=== PATIENT | female | born 1965 | race Caucasian/White ===

== ENCOUNTER 2018-08-15 11:52 | Day surgery (SDC) | payer BC ==
[~2018-08-15 11:52] MED LIST: Lactated Ringers 1,000 ML IV SCH
[2018-08-15] MEDS ORDERED: Acetaminophen 1,000 MG in Premix Bag 1 BAG IV ONE (13:41)
--- NOTE | 2018-08-15 13:43 | PCM.PREANE ---
Preanesthetic Assessment - Anesthesia/Transfusion/Family Hx Anesthesia History: Prior Anesthesia Without Reaction Other Type of Anesthesia Reaction Comment: pt adopted unsure of family history Family History of Anesthesia Reaction: No Transfusion History: No Prior Transfusion(s) - Review of Systems General: No Symptoms Pulmonary: No Symptoms Cardiovascular: No Symptoms Gastrointestinal: No Symptoms Neurological: No Symptoms Other: Reports: None - Physical Assessment NPO Status Date: 08/14/18 Height: 5 ft Weight: 70.76 kg ASA Class: 2 Mental Status: Alert & Oriented x3 Airway Class: Mallampati = 2 Dentition: Reports: Normal Dentition ROM/Head Extension: Full Lungs: Clear to Auscultation, Normal Respiratory Effort Cardiovascular: Regular Rate, Regular Rhythm - Allergies Allergies/Adverse Reactions: Allergies Allergy/AdvReac Type Severity Reaction Status Date / Time coconut Allergy Swollen Verified 08/12/18 10:33 Tongue - Anesthesia Plan Pre-Op Medication Ordered: Other (iv acetamenaphin for singletary) - Acknowledgements Anesthesia Type Planned: MAC Pt an Appropriate Candidate for the Planned Anesthesia: Yes Alternatives and Risks of Anesthesia Discussed w Pt/Guardian: Yes Pt/Guardian Understands and Agrees with Anesthesia Plan: Yes Additional Comments: PMH: gerd, hx esoph stricture, recent root canal, thyroid replacement PLAN: mac/tiva PreAnesthesia Questionnaire HEENT History: Reports: Other (See Below) Other HEENT History: wears glasses/contacts Cardiovascular History: Reports: Other (See Below) Other Cardiovascular History: stress related elevated BP, not on medication Gastrointestinal History: Reports: GERD Genitourinary History: Reports: None 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: Musculoskeletal History: Reports: Back Pain, Chronic, Neck Pain, Chronic Psychiatric History: Reports: Anxiety, Depression Endocrine/Metabolic History: Reports: Hypothyroidism - Infectious Disease History Infectious Disease History: Reports: Chicken Pox - Past Surgical History Head Surgeries/Procedures: Reports: None GI Surgical History: Reports: Appendectomy Female Surgical History: Reports: Endometrial Ablation, Tubal Ligation Neurological Surgical History: Reports: Lumbar Spine Other Neurological Surgeries/Procedures: hx back surgery - SUBSTANCE USE Smoking Status *Q: Current Some Day Smoker Tobacco Use Within Last Twelve Months: No Recreational Drug Type: Reports: Marijuana/Hashish - HOME MEDS Home Medications: Home Meds Levothyroxine Sodium [Euthyrox] 25 mcg PO DAILY 08/12/18 [History] Omeprazole 40 mg PO DAILY 08/12/18 [History] Ondansetron [Zofran ODT] 4 mg SL ASDIRECTED PRN 08/12/18 [History] oxyCODONE HCl [Oxycodone HCl] 5 ml PO ASDIRECTED PRN 08/12/18 [History] - CURRENT (IN HOUSE) MEDS Current Meds: Current Medications Lactated Ringer's (Ringers, Lactated) 1,000 mls @ 125 mls/hr IV ASDIRECTED [facility] Acetaminophen 1,000 mg/ Premix 100 mls @ 400 mls/hr IV NOW ONE Stop: 08/15/18 13:55
[2018-08-15] MEDS ORDERED: Propofol 200 MG/20 ML SDV ONE ×3 (15:30→16:20)
[2018-08-15] MEDS ORDERED: fentaNYL 100 MCG/2 ML SDV ONE (15:59)
[2018-08-15] MEDS ORDERED: Labetalol 100 MG/20 ML MDV ONE (16:25)
[2018-08-15] MEDS ORDERED: fentaNYL 100 MCG/2 ML SDV IVPUSH PRN (16:53)
--- NOTE | 2018-08-15 17:04 | PCM.OPNOTE ---
- General Post-Op/Procedure Note Date of Surgery/Procedure: 08/15/18 Operative Procedure(s): egd and colonoscopy Findings: see dict [id number] Pre Op Diagnosis: dysphagia and screening colonoscopy Post-Op Diagnosis: Same Anesthesia Technique: Moderate Sedation Primary Surgeon: Yo Wilkerson Pathology: egd bx Complications: None Condition: Good
--- NOTE | 2018-08-15 17:16 | PCM48HPAN ---
Post Anesthesia Note - EVALUATION WITHIN 48HRS OF ANESTHETIC Vital Signs in Normal Range: Yes Patient Participated in Evaluation: Yes Respiratory Function Stable: Yes Airway Patent: Yes Cardiovascular Function Stable: Yes Hydration Status Stable: Yes Pain Control Satisfactory: Yes Nausea and Vomiting Control Satisfactory: Yes Mental Status Recovered: Yes Resp Rate: 12
--- NOTE | 2018-08-15 17:16 | PCM.POSTAN ---
POST ANESTHESIA ASSESSMENT - MENTAL STATUS Mental Status: Alert, Oriented - RESPIRATORY Respiratory Status: Respiratory Rate WNL, Airway Patent, O2 Saturation Stable - CARDIOVASCULAR CV Status: Blood Pressure Stable - GASTROINTESTINAL GI Status: No Symptoms - POST OP HYDRATION Hydration Status: Adequate & Stable
--- NOTE | 2018-08-15 18:13 | OR ---
SURGEON: Yo Wilkerson MD DATE OF PROCEDURE: 08/15/2018 PREOPERATIVE DIAGNOSES: Dysphagia and screening colonoscopy. POSTOPERATIVE DIAGNOSES: Dysphagia and screening colonoscopy. PROCEDURES PERFORMED: Esophagogastroduodenoscopy with biopsy, and colonoscopy. PROCEDURE IN DETAIL: EGD: The patient was taken to the endoscopy room, and with the STUNNER, Diprivan was administered. A well-lubricated EGD scope was gently inserted through the oropharynx, down the esophagus, passing through the gastroesophageal junction, into the stomach. The mucosa was examined upon the passage. Any etiology will be noted. Once in the stomach, we continued to advance to the distal antrum, passed through the pylorus into the second portion of the duodenum. Again, the mucosa was examined for any abnormality and etiology. The scope was then retrieved back to the stomach and then retroflexed to look at the fundus of the stomach. If a biopsy was indicated, we will biopsy the antrum, body, and gastroesophageal junction. The air will be sucked out while the scope is retrieved to reduce the patient's discomfort. The patient tolerated the procedure well. There were no intraoperative complications. Dr. Wilkerson was present through the whole procedure. Prior to surgery, a time-out had been called, the patient identified, procedure identified and antibiotic administered. Colonoscopy procedure: The patient was taken to the endoscopy room. A time out was called, patient identified, and procedure identified. Diprivan was then administrated. Patient went from awake to sleep, hearing doctor talking or door closing is normal. Perineum inspection and digital examination were then performed. A well- lubricated colonoscope was gently inserted through the rectum, advanced past the rectosigmoid junction, the descending colon, splenic flexure, transverse colon, hepatic flexure, ascending colon, arrived to the cecum. Cecum was identified as dictated in the finding. Then the scope was carefully withdrawn while attention was paid to the mucosal surface for any abnormality. Air will be sucked out during the scope withdrawal. At the rectum, retroflexed to examine any rectal diseases, fistula or hemorrhoids. Patient tolerated procedure well. There were no intraoperative complications, and Dr. Wilkerson was present throughout the whole procedure. FINDINGS: EGD findings: 1. The patient is easily sedated with STUNNER and Diprivan. The patient is soundly snoring. 2. Proximal esophagus and oropharynx are free of disease, but mucosa is very frail, even though this could cause some minimal bleeding. GE junction at 40 shows moderate amount of salmon-colored change consistent with moderate amount of GERD. Stomach rugae is normal in appearance. No food, bile, or blood observed. Antrum was slightly inflamed, but again no ulcer or blood observed. Duodenum was grossly normal. Retroflexed look at the fundus of stomach, there is no hiatal hernia. Biopsy done at antrum, body, GE junction at 40 and sucked out the gas while scope pulling out. Colonoscopy findings: 1. The patient is sedated with STUNNER and Diprivan. The patient is soundly snoring. 2. Bowel prep is average. Large amount of liquified stool. No semi-formed stool. 3. The patient's colon is rather redundant and exacerbating, negotiate between the sigmoid and descending colon is quite demanding, trying for above assuming we can get it, put the patient on the back, then was able to go through. The cecum indicated by ileocecal fold, one-to-one indentation, light emittance, and appendiceal orifice. Mucosa examined upon scope pulling out. The patient does not have polyp, mass, growth, inflammation, stricture, AV malformation, mass, ulcer, none of those. The patient does have diverticulosis. No signs or symptoms of diverticulitis on the left colon. The patient has internal hemorrhoid and no external hemorrhoids. The patient would benefit from repeat colonoscopy in 10 years from today or if clinically indicated otherwise. RADU / MARY ANN /[id number]
== END 2018-08-15 18:30 | disposition home or self-care (01) ==
LOC: MW.SDS 11:52
PROVIDERS: ATTEND Surgery
DX: K20.9 Esophagitis, unspecified (principal); K21.9 Gastro-esophageal reflux disease without esophagitis; K31.89 Other diseases of stomach and duodenum; K57.30 Diverticulosis of large intestine without perforation or abscess without bleeding; K64.8 Other hemorrhoids; K63.89 Other specified diseases of intestine; I10 Essential (primary) hypertension; E03.9 Hypothyroidism, unspecified; G89.29 Other chronic pain; M54.2 Cervicalgia; Z91.018 Allergy to other foods; Z87.891 Personal history of nicotine dependence; Z79.899 Other long term (current) drug therapy
CPT/HCPCS: 43239; 45378; J2704; J3010; J3490; J7120

== ENCOUNTER 2018-09-12 06:23 | Day surgery (SDC) | payer BC ==
[~2018-09-12 06:23] MED LIST changes: +ceFAZolin 2 GM in Premix Bag 1 BAG IV ONE
[2018-09-12] MEDS ORDERED: Scopolamine 1.5 MG Transdermal Patch TRDERM PRN (07:08)
--- NOTE | 2018-09-12 07:11 | PCM.PREANE ---
Preanesthetic Assessment - Anesthesia/Transfusion/Family Hx Anesthesia History: Prior Anesthesia Without Reaction Other Type of Anesthesia Reaction Comment: pt adopted unsure of family history Family History of Anesthesia Reaction: No Transfusion History: No Prior Transfusion(s) - Review of Systems General: No Symptoms Pulmonary: No Symptoms Cardiovascular: No Symptoms Gastrointestinal: No Symptoms Neurological: No Symptoms Other: Reports: None - Physical Assessment NPO Status Date: 09/12/18 NPO Status Time: 06:00 O2 Sat by Pulse Oximetry: 98 Respiratory Rate: 18 Vital Signs: Last Vital Signs Temp 96.8 F 09/12/18 06:35 Pulse 69 09/12/18 06:35 Resp 18 09/12/18 06:35 BP 151/99 H 09/12/18 06:35 Pulse Ox 98 09/12/18 06:35 Height: 5 ft Weight: 68.946 kg ASA Class: 2 Mental Status: Alert & Oriented x3 Dentition: Reports: Normal Dentition ROM/Head Extension: Full Lungs: Clear to Auscultation, Normal Respiratory Effort Cardiovascular: Regular Rate, Regular Rhythm - Allergies Allergies/Adverse Reactions: Allergies Allergy/AdvReac Type Severity Reaction Status Date / Time coconut Allergy Swollen Verified 09/08/18 08:46 Tongue - Blood Blood Available: Yes - Anesthesia Plan Pre-Op Medication Ordered: Other (scop) - Acknowledgements Anesthesia Type Planned: MAC Pt an Appropriate Candidate for the Planned Anesthesia: Yes Alternatives and Risks of Anesthesia Discussed w Pt/Guardian: Yes Pt/Guardian Understands and Agrees with Anesthesia Plan: Yes Additional Comments: PMH: esoph stricture, thyroid replacement, just started to topimax for migraine headaches PLAN: GET PreAnesthesia Questionnaire HEENT History: Reports: Other (See Below) Other HEENT History: wears glasses/contacts Cardiovascular History: Reports: None Respiratory History: Reports: None Gastrointestinal History: Reports: GERD, Other (See Below) Other Gastrointestinal History: intermittent epigastric pain Genitourinary History: Reports: 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: Musculoskeletal History: Reports: Back Pain, Chronic, Neck Pain, Chronic Neurological History: Reports: None Psychiatric History: Reports: Anxiety, Depression Endocrine/Metabolic History: Reports: Hypothyroidism Hematologic History: Reports: None Immunologic History: Reports: None Oncologic (Cancer) History: Reports: None Dermatologic History: Reports: None - Infectious Disease History Infectious Disease History: Reports: Chicken Pox - Past Surgical History Head Surgeries/Procedures: Reports: None Cardiovascular Surgical History: Reports: None Respiratory Surgical History: Reports: None GI Surgical History: Reports: Appendectomy Female Surgical History: Reports: Endometrial Ablation, Tubal Ligation Endocrine Surgical History: Reports: None Neurological Surgical History: Reports: Spinal Fusion Other Neurological Surgeries/Procedures: hx back surgery Musculoskeletal Surgical History: Reports: None Oncologic Surgical History: Reports: None Dermatological Surgical History: Reports: None - SUBSTANCE USE Smoking Status *Q: Former Smoker Recreational Drug Type: Reports: Marijuana/Hashish - HOME MEDS Home Medications: Home Meds Levothyroxine Sodium [Euthyrox] 25 mcg PO DAILY 08/12/18 [History] Omeprazole 40 mg PO DAILY 08/12/18 [History] Ondansetron [Zofran ODT] 4 mg SL ASDIRECTED PRN 08/12/18 [History] oxyCODONE HCl [Oxycodone HCl] 5 ml PO ASDIRECTED PRN 08/12/18 [History] Topiramate 25 mg PO DAILY 09/08/18 [History] - CURRENT (IN HOUSE) MEDS Current Meds: Current Medications Lactated Ringer's (Ringers, Lactated) 1,000 mls @ 125 mls/hr IV ASDIRECTED [facility] Last Admin: 09/12/18 06:45 Dose: 125 mls/hr Discontinued Medications Cefazolin Sodium/Dextrose 2 gm (/ Premix) 50 mls @ 100 mls/hr IV ONETIME ONE Stop: 09/12/18 05:29
[2018-09-12] MEDS ORDERED: Bupivacaine 25%/EPINEPHrine/PF 30 ML ONE (07:22)
[2018-09-12] MEDS ORDERED: Midazolam 1 MG/ML 2 ML SDV ONE (07:30)
[2018-09-12] MEDS ORDERED: fentaNYL 100 MCG/2 ML SDV ONE (07:30)
[2018-09-12] MEDS ORDERED: Propofol 200 MG/20 ML SDV ONE (07:30)
[2018-09-12] MEDS ORDERED: Ondansetron 4 MG/2 ML SDV ONE (07:30)
[2018-09-12] MEDS ORDERED: Ketorolac 30 MG/ML SDV ONE (07:30)
[2018-09-12] MEDS ORDERED: Rocuronium 10 MG/ML 10 ML Syringe ONE (07:30)
[2018-09-12] MEDS ORDERED: Succinylcholine 200 MG/10 ML MDV ONE (07:30)
[2018-09-12] MEDS ORDERED: Dexamethasone 4 MG/ML 5 ML MDV ONE (07:30)
[2018-09-12] MEDS ORDERED: Octyl 2-Cyanoacrylate 1 Tube ONE (07:36)
[2018-09-12] MEDS ORDERED: Sugammadex Sodium 200 MG/2 ML VIAL ONE (07:38)
[2018-09-12] MEDS ORDERED: Ondansetron 4 MG/2 ML SDV IVPUSH PRN (07:41)
[2018-09-12] MEDS ORDERED: ceFAZolin/Dextrose,Iso-Osmotic 2 GM/50 ML Duplex Bag IV ONE (08:02)
[2018-09-12] MEDS ORDERED: Labetalol 100 MG/20 ML MDV ONE (08:35)
[2018-09-12] MEDS ORDERED: Glycopyrrolate 0.2 MG/ML SDV ONE (08:37)
--- NOTE | 2018-09-12 09:17 | PCM.OPNOTE ---
- General Post-Op/Procedure Note Date of Surgery/Procedure: 09/12/18 Operative Procedure(s): lap eliceo Findings: gb was adhered to surrounding omentum;yellow and green cw chronic and acute cholecystitis; one large gall stones; wall is not thickened; [id number] Pre Op Diagnosis: acute and chronic cholecystitis Post-Op Diagnosis: Same Anesthesia Technique: General ET Tube Primary Surgeon: Yo Wilkerson Pathology: sent Complications: None Condition: Good
[2018-09-12] MEDS: fentaNYL 100 MCG/2 ML SDV IVPUSH PRN ×3 (09:28→10:25)
[2018-09-12] MEDS ORDERED: HYDROmorphone 2 MG/ML Syringe ONE (09:43)
[2018-09-12] MEDS: HYDROmorphone 2 MG/ML SDV IVPUSH PRN ×2 (09:44→09:55)
--- NOTE | 2018-09-12 10:28 | PCM.POSTAN ---
POST ANESTHESIA ASSESSMENT - MENTAL STATUS Mental Status: Alert, Oriented - RESPIRATORY Respiratory Status: Respiratory Rate WNL, Airway Patent, O2 Saturation Stable - CARDIOVASCULAR CV Status: Pulse Rate WNL, Blood Pressure Stable - GASTROINTESTINAL GI Status: No Symptoms - PAIN Pain Score: 3 - POST OP HYDRATION Hydration Status: Adequate & Stable
--- NOTE | 2018-09-12 11:10 | PCM48HPAN ---
Post Anesthesia Note - EVALUATION WITHIN 48HRS OF ANESTHETIC Vital Signs in Normal Range: Yes Patient Participated in Evaluation: Yes Respiratory Function Stable: Yes Airway Patent: Yes Cardiovascular Function Stable: Yes Hydration Status Stable: Yes Pain Control Satisfactory: Yes Nausea and Vomiting Control Satisfactory: Yes Mental Status Recovered: Yes Resp Rate: 14
[2018-09-12] MEDS ORDERED: Acetaminophen/oxyCODONE 325-5 MG Tab PO PRN (12:35)
--- NOTE | 2018-09-12 13:27 | OR ---
SURGEON: Yo Wilkerson MD DATE OF PROCEDURE: 09/12/2018 PREOPERATIVE DIAGNOSIS: Hiuru-jy-[id number] cholecystitis. POSTOPERATIVE DIAGNOSIS: [id number]-[id number] cholecystitis. PROCEDURE PERFORMED: Laparoscopic cholecystectomy. COMPLICATION: None. INTRAOPERATIVE FINDINGS: Gallbladder was severely adherent to surrounding omentum and organs and suggests chronic in nature. Gallbladder is yellow and green consistent with chronic, and there is a large stone and wall is not thickened. PROCEDURE IN DETAIL: The patient was taken to the operating room and placed in the supine position. After the intubation of general endotracheal anesthesia, the patient's abdomen was prepped and draped in the usual sterile fashion. Using Carnival, a 12 mm trocar was placed supraumbilically and then followed with pneumoperitoneum. A 5 mm trocar was placed in the epigastrium and two 5 mm trocars placed in the right upper quadrant. The placement of the last three trocars was done under direct video supervision. Upon gaining entrance to the abdominal cavity, an extensive examination was then performed. The gallbladder was located and identified and retracted to the dome of the liver at the triangle of Calot. The cystic duct was clipped three more times and then using the endoscopic clip, was transected with placement of the endoscopic clip and transection was performed with care, ensuring the posterior prong of the instruments were clearly visualized prior to exercising the procedure. The gallbladder was dissected using electrocautery out of the liver bed and then removed using endoscopic bag through the umbilical site. The gallbladder was removed en bloc and there was no bile spillage and this was then followed with extensive irrigation until the bile was clear from blood and bile. The trocars were then removed under direct video supervision. The 12 mm umbilical site was then closed with deep stitches using 0 Vicryl followed with proximal stitches using 3-0 Vicryl and Dermabond. The other three trocar sites were closed with 3-0 Vicryl followed with approximation of skin with Dermabond. The patient was then awakened and extubated and transferred to the recovery room in hemodynamically stable condition. At the conclusion of the surgery, before closing the abdominal wound, instrument count and sponge count were done and were correct. Surgicel was placed for hemostasis. The patient tolerated the procedure well and there were no intraoperative complications. Dr. Wilkerson was present through the whole procedure. Just before surgery, a timeout was called. The patient was identified and procedure identified and procedure started. RADU / MARY ANN /[id number]
== END 2018-09-12 14:00 | disposition home or self-care (01) ==
LOC: MW.SDS 06:23
PROVIDERS: ATTEND Surgery
DX: K80.12 Calculus of gallbladder with acute and chronic cholecystitis without obstruction (principal); I10 Essential (primary) hypertension; E03.9 Hypothyroidism, unspecified; K21.9 Gastro-esophageal reflux disease without esophagitis; Z91.018 Allergy to other foods; Z79.899 Other long term (current) drug therapy
CPT/HCPCS: 47562; A9270; J0131; J0330; J0690; J1100; J1170; J1885; J2250; J2405; J2704; J3010; J3490; J7120; 88304

== ENCOUNTER 2019-02-10 21:58 | Emergency (ER) | payer BC ==
[2019-02-10] MEDS ORDERED: Ketorolac 60 MG/2 ML SDV IM ONE (22:23)
--- NOTE | 2019-02-10 22:29 | EDM.PDOC ---
ED HPI GENERAL MEDICAL PROBLEM - General Chief Complaint: Headache Stated Complaint: PT HAS NECK PAIN Time Seen by Provider: 02/10/19 22:07 Source of Information: Reports: Patient History Limitations: Reports: No Limitations - History of Present Illness INITIAL COMMENTS - FREE TEXT/NARRATIVE: Presents reporting a worsening of her chronic neck pain and headache. The patient states she has a long-standing history of chronic neck pain that sometimes radiates up into the occiput 10 becomes a headache. On Saturday night she believes that she slept wrong and since that time the neck pain and almost constant headache has exacerbated. She has tried her usual relief measures including a TENS unit, massage, hot pack, Tylenol, a muscle rub and some of her 's muscle relaxant with out palliation. No fever, visual symptoms, tingling or numbness in the arms or hands. Headache/Neck Pain Score (Numeric/FACES): 10 - Related Data Allergies Allergy/AdvReac Type Severity Reaction Status Date / Time coconut Allergy Swollen Verified 02/10/19 22:11 Tongue Home Meds: Home Meds Levothyroxine Sodium [Euthyrox] 25 mcg PO DAILY 08/12/18 [History] Topiramate 25 mg PO DAILY 09/08/18 [History] Diclofenac Sodium [Voltaren] 75 mg PO BIDMEALS PRN #20 tab.ec 02/10/19 [Rx] diazePAM [Valium] 2 mg PO BEDTIME PRN 7 Days #7 tab 02/10/19 [Rx] Past Medical History HEENT History: Reports: Other (See Below) Other HEENT History: wears glasses/contacts Cardiovascular History: Reports: None Respiratory History: Reports: None Gastrointestinal History: Reports: GERD, Other (See Below) Other Gastrointestinal History: intermittent epigastric pain Genitourinary History: Reports: None 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: Musculoskeletal History: Reports: Back Pain, Chronic, Neck Pain, Chronic Neurological History: Reports: None Psychiatric History: Reports: Anxiety, Depression Endocrine/Metabolic History: Reports: Hypothyroidism Hematologic History: Reports: None Immunologic History: Reports: None Oncologic (Cancer) History: Reports: None Dermatologic History: Reports: None - Infectious Disease History Infectious Disease History: Reports: Chicken Pox - Past Surgical History Head Surgeries/Procedures: Reports: None HEENT Surgical History: Reports: None Cardiovascular Surgical History: Reports: None Respiratory Surgical History: Reports: None GI Surgical History: Reports: Appendectomy, Cholecystectomy Female Surgical History: Reports: Endometrial Ablation, Tubal Ligation Endocrine Surgical History: Reports: None Neurological Surgical History: Reports: Spinal Fusion Other Neurological Surgeries/Procedures: hx back surgery Musculoskeletal Surgical History: Reports: None Oncologic Surgical History: Reports: None Dermatological Surgical History: Reports: None Social & Family History - Family History Family Medical History: Noncontributory - Tobacco Use Smoking Status *Q: Former Smoker Used Tobacco, but Quit: Yes Month/Year Tobacco Last Used: 2013 - Caffeine Use Caffeine Use: Reports: Coffee, Energy Drinks, Soda - Recreational Drug Use Recreational Drug Use: Yes Recreational Drug Type: Reports: Marijuana/Hashish Recreational Drug Use Frequency: Socially ED ROS GENERAL - Review of Systems Review Of Systems: ROS reveals no pertinent complaints other than HPI. - Physical Exam Exam: See Below General Appearance: Alert, No Apparent Distress Ears: Normal External Exam, Normal TMs Nose: Normal Inspection Throat/Mouth: Normal Inspection Head Exam: Atraumatic, Normocephalic Neck: Normal Inspection, Supple, Non-Tender, Full Range of Motion. No: Lymphadenopathy (L), Lymphadenopathy (R) Respiratory/Chest: No Respiratory Distress, Lungs Clear, Normal Breath Sounds Cardiovascular: Normal Peripheral Pulses, Regular Rate, Rhythm, No Murmur Back Exam: Normal Inspection, Full Range of Motion. No: Paraspinal Tenderness, Vertebral Tenderness Extremities: Normal Inspection Psychiatric: Normal Affect, Normal Mood Skin Exam: Warm, Dry, Intact, Normal Color, No Rash Course - Vital Signs Last Recorded V/S: Last Vital Signs Temp 36.3 C 02/10/19 22:12 Pulse 77 02/10/19 22:12 Resp 18 02/10/19 22:12 BP 186/112 H 02/10/19 22:12 Pulse Ox 97 02/10/19 22:12 Departure - Departure Time of Disposition: 22:29 Disposition: Home, Self-Care 01 Condition: Good Clinical Impression: Neck ache - Discharge Information *PRESCRIPTION DRUG MONITORING PROGRAM REVIEWED*: Not Applicable *COPY OF PRESCRIPTION DRUG MONITORING REPORT IN PATIENT TAVON: Not Applicable Referrals: Balta Celeste MD [Resident] - Additional Instructions: The following information is given to patients seen in the emergency department who are being discharged to home. This information is to outline your options for follow-up care. We provide all patients seen in our emergency department with a follow-up referral. The need for follow-up, as well as the timing and circumstances, are variable depending upon the specifics of your emergency department visit. If you don't have a primary care physician on staff, we will provide you with a referral. We always advise you to contact your personal physician following an emergency department visit to inform them of the circumstance of the visit and for follow-up with them and/or the need for any referrals to a consulting specialist. The emergency department will also refer you to a specialist when appropriate. This referral assures that you have the opportunity for follow-up care with a specialist. All of these measure are taken in an effort to provide you with optimal care, which includes your follow-up. Under all circumstances we always encourage you to contact your private physician who remains a resource for coordinating your care. When calling for follow-up care, please make the office aware that this follow-up is from your recent emergency room visit. If for any reason you are refused follow-up, please contact the [facility] Emergency Department at and asked to speak to the emergency department charge nurse. 1. Follow up with your primary provider as previously scheduled 2. Valium 2 mg at bedtime as needed for relaxation and sleep. No driving or operating machinery 3. diclofenac 75 mg twice daily as needed for pain
== END 2019-02-10 22:54 | disposition home or self-care (01) ==
LOC: MW.ED 21:58
DX: M54.2 Cervicalgia (principal)
CPT/HCPCS: 96372; 99283; J1885; J2360

== ENCOUNTER 2020-05-14 10:22 | Observation (INO) | payer BC ==
[2020-05-14] MEDS ORDERED: Sodium Chloride 0.9% 10 ML Syringe FLUSH PRN (10:28)
[2020-05-14] MEDS ORDERED: Aspirin 81 MG Tab.Chew PO ONE (10:28)
[2020-05-14] MEDS ORDERED: Sodium Chloride 0.9% 2.5 ML Syringe FLUSH PRN (10:28)
[2020-05-14] MEDS ORDERED: Ondansetron 4 MG/2 ML SDV IVPUSH ONE (10:36)
--- NOTE | 2020-05-14 10:36 | EDM.PDOC ---
ED HPI GENERAL MEDICAL PROBLEM - General Chief Complaint: Chest Pain Stated Complaint: CHEST PAIN Time Seen by Provider: 05/14/20 10:27 Source of Information: Reports: Patient History Limitations: Reports: No Limitations - History of Present Illness INITIAL COMMENTS - FREE TEXT/NARRATIVE: HISTORY AND PHYSICAL: History of present illness: Patient is a 54-year-old female who presents to the emergency room with complaints of left anterior chest pain since 8 AM. She states she has chronic neck pain that typically radiates to her left side of her neck and down into her left arm. Today she states the pain is a little more intense than she is used to. She woke up without any chest pain but noticed the left sided neck pain, proceeded to get her coffee and started to have left anterior chest pain which she describes as a sharp pressure. Nothing makes the pain better or worse, describing it as constant. She also has some mild nausea without vomiting. Patient denies any fever, chills, headache, change in vision, syncope or near syncope. Denies any back pain, shortness of breath or cough. Denies any abdominal pain, diarrhea, constipation or dysuria. Has not noted any blood in urine or stool. Patient has been eating and drinking appropriately. Review of systems: As per history of present illness and below otherwise all systems reviewed and negative. Past medical history: As per history of present illness and as reviewed below otherwise noncontributory. Surgical history: As per history of present illness and as reviewed below otherwise noncontributory. Social history: See social history for further information Family history: As per history of present illness and as reviewed below otherwise noncontributory. Physical exam: General: Well developed and well nourished 54 year old female. Alert and orientated x 3. Nontoxic in appearance and in no acute distress. Vital signs are stable and have been reviewed by me. Nursing notes were reviewed. HEENT: Atraumatic, normocephalic, pupils equal and reactive bilaterally, negative for conjunctival pallor or scleral icterus, mucous membranes moist, throat clear, neck supple, nontender, trachea midline. No drooling or trismus noted. No meningeal signs. No hot potato voice noted. Lungs: Clear to auscultation, breath sounds equal bilaterally, mild left anterior chest tenderness with palpation. Normal work of breathing, no accessory muscles used. Heart: S1S2, regular rate and rhythm without overt murmur Abdomen: Soft, nondistended, nontender. Negative for masses or hepatosplenomegaly. Negative for costovertebral tenderness. Pelvis: Stable nontender. Skin: Intact, warm, dry. No lesions or rashes noted. Hematologic: No petechiae or purpra. Mucosa appropriate color and normal nail bed color and refill. Extremities: Atraumatic, moves all extremities per self without difficulty or deficits, negative for cords or calf pain. Neurovascular unremarkable. Neuro: Awake, alert, oriented. Cranial nerves II through XII unremarkable. Cerebellum unremarkable. Motor and sensory unremarkable throughout. Exam nonfocal. Psychiatric: Mood and affect are appropriate. Normal thought process. Answering questions appropriately. Notes: TSH is elevated, currently takes medications for hypothyroidism. Initial troponin is negative. Chest x-ray is unremarkable. HEART Score= 4 (Moderate). Blood pressure was initially elevated, but continues to flucuate. Patient doesn't recall ever having BP issues; hasn't been on any antihypertensive medications. Discussed with patient observation; she would prefer to be admitted for further monitoring. Dr Leon was consulted and is agreeable to further care and management. Diagnostics: CBC, CMP, TSH, Troponin, EKG, CXR, COVID Therapeutics: Nitro, ASA 324mg chew, Morphine, Toradol Impression: Hypothyroidism Hypertension Chest Pain, R/O DE Plan: Observation admission to Med/Surg with telemetry Definitive disposition and diagnosis as appropriate pending reevaluation and review of above. left chest Pain Score (Numeric/FACES): 10 - Related Data Allergies Allergy/AdvReac Type Severity Reaction Status Date / Time coconut Allergy Swollen Verified 05/14/20 10:23 Tongue Home Meds: Home Meds Levothyroxine Sodium [Euthyrox] 25 mcg PO DAILY 08/12/18 [History] Past Medical History HEENT History: Reports: Other (See Below) Other HEENT History: wears glasses/contacts Cardiovascular History: Reports: None Respiratory History: Reports: None Gastrointestinal History: Reports: GERD, Other (See Below) Other Gastrointestinal History: intermittent epigastric pain Genitourinary History: Reports: None 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: Musculoskeletal History: Reports: Back Pain, Chronic, Neck Pain, Chronic Neurological History: Reports: None Psychiatric History: Reports: Anxiety, Depression Endocrine/Metabolic History: Reports: Hypothyroidism Hematologic History: Reports: None Immunologic History: Reports: None Oncologic (Cancer) History: Reports: None Dermatologic History: Reports: None - Infectious Disease History Infectious Disease History: Reports: Chicken Pox - Past Surgical History Head Surgeries/Procedures: Reports: None HEENT Surgical History: Reports: None Cardiovascular Surgical History: Reports: None Respiratory Surgical History: Reports: None GI Surgical History: Reports: Appendectomy, Cholecystectomy Female Surgical History: Reports: Endometrial Ablation, Tubal Ligation Endocrine Surgical History: Reports: None Neurological Surgical History: Reports: Spinal Fusion Other Neurological Surgeries/Procedures: hx back surgery Musculoskeletal Surgical History: Reports: None Oncologic Surgical History: Reports: None Dermatological Surgical History: Reports: None Social & Family History - Family History Family Medical History: No Pertinent Family History - Tobacco Use Tobacco Use Status *Q: Never Tobacco User - Caffeine Use Caffeine Use: Reports: Coffee, Energy Drinks, Soda - Recreational Drug Use Recreational Drug Use: Yes Drug Use in Last 12 Months: Yes Recreational Drug Type: Reports: Marijuana/Hashish Recreational Drug Use Frequency: Socially ED ROS GENERAL - Review of Systems Review Of Systems: Comprehensive ROS is negative, except as noted in HPI. ED EXAM, GENERAL - Physical Exam Exam: See Below (See dictation) Course - Vital Signs Last Recorded V/S: Last Vital Signs Temp 97.1 F 05/14/20 10:24 Pulse 83 05/14/20 12:15 Resp 18 05/14/20 12:15 BP 196/119 H 05/14/20 12:15 Pulse Ox 97 05/14/20 12:15 - Orders/Labs/Meds Orders: Active Orders 24 hr Category Date Time Status Admission Status [Patient Status] [ADT] Stat ADT 05/14/20 12:35 Active EKG Documentation Completion [RC] STAT Care 05/14/20 10:28 Active UA RFX AWILDA AND CULT IF INDIC [URIN] Stat Lab 05/14/20 10:28 Ordered Sodium Chloride 0.9% [Saline Flush] Med 05/14/20 10:28 Active 10 ml FLUSH ASDIRECTED PRN Sodium Chloride 0.9% [Saline Flush] Med 05/14/20 10:28 Active 2.5 ml FLUSH ASDIRECTED PRN Saline Lock Insert [OM.PC] Stat Oth 05/14/20 10:28 Ordered Medication Orders Sodium Chloride (Saline Flush) 10 ml FLUSH ASDIRECTED PRN PRN Reason: Keep Vein Open Last Admin: 11/14/20 10:38 Dose: 10 ml Documented by: DINO Sodium Chloride (Saline Flush) 2.5 ml FLUSH ASDIRECTED PRN PRN Reason: Keep Vein Open Last Admin: 05/14/20 10:38 Dose: 2.5 ml Documented by: DINO Labs: Laboratory Tests 05/14/20 05/14/20 05/14/20 Range/Units 10:30 10:30 11:20 WBC 7.02 (4.0-11.0) K/uL RBC 4.78 (4.30-5.90) M/uL Hgb 14.5 (12.0-16.0) g/dL Hct 44.2 (36.0-46.0) % MCV 92.5 (80.0-98.0) fL MCH 30.3 (27.0-32.0) pg MCHC 32.8 (31.0-37.0) g/dL RDW Std Deviation 42.6 (28.0-62.0) fl RDW Coeff of Ivania 13 (11.0-15.0) % Plt Count 293 (150-400) K/uL MPV 10.00 (7.40-12.00) fL Neut % (Auto) 64.0 (48.0-80.0) % Lymph % (Auto) 21.7 (16.0-40.0) % [place] % (Auto) 4.7 (0.0-15.0) % Eos % (Auto) 9.3 H (0.0-7.0) % Baso % (Auto) 0.3 (0.0-1.5) % Neut # (Auto) 4.5 (1.4-5.7) K/uL Lymph # (Auto) 1.5 (0.6-2.4) K/uL [place] # (Auto) 0.3 (0.0-0.8) K/uL Eos # (Auto) 0.7 (0.0-0.7) K/uL Baso # (Auto) 0.0 (0.0-0.1) K/uL Nucleated RBC % 0.0 /100WBC Nucleated RBCs # 0 K/uL Sodium 136 (136-145) mmol/L Potassium 3.6 (3.5-5.1) mmol/L Chloride 101 (98-107) mmol/L Carbon Dioxide 25.9 (21.0-32.0) mmol/L BUN 9 (7.0-18.0) mg/dL Creatinine 0.9 (0.6-1.0) mg/dL Est Cr Clr Drug Dosing 50.13 mL/min Estimated GFR (MDRD) > 60.0 ml/min Glucose 96 (74-106) mg/dL Calcium 9.1 (8.5-10.1) mg/dL Total Bilirubin 0.6 (0.2-1.0) mg/dL AST 19 (15-37) IU/L ALT 34 (14-63) IU/L Alkaline Phosphatase 107 (46-116) U/L Troponin I < 0.050 (0.000-0.056) ng/mL Total Protein 7.7 (6.4-8.2) g/dL Albumin 4.2 (3.4-5.0) g/dL Globulin 3.5 (2.6-4.0) g/dL Albumin/Globulin Ratio 1.2 (0.9-1.6) TSH 3rd Generation 4.61 H (0.36-3.74) uIU/mL SARS-CoV-2 RNA (ROXY) NEGATIVE (NEGATIVE) Meds: Medications Generic Name Dose Route Start Last Admin Trade Name Isai PRN Reason Stop Dose Admin Sodium Chloride 10 ml 05/14/20 10:28 05/14/20 10:38 Saline Flush FLUSH 10 ml ASDIRECTED PRN Administration Keep Vein Open Sodium Chloride 2.5 ml 05/14/20 10:28 05/14/20 10:38 Saline Flush FLUSH 2.5 ml ASDIRECTED PRN Administration Keep Vein Open Discontinued Medications Generic Name Dose Route Start Last Admin Trade Name Frefernanda PRN Reason Stop Dose Admin Aspirin 324 mg 05/14/20 10:28 05/14/20 10:37 Aspirin PO 05/14/20 10:29 324 mg ONETIME ONE Administration Ketorolac Tromethamine 30 mg 05/14/20 11:50 Toradol IVPUSH 05/14/20 11:51 ONETIME ONE Morphine Sulfate 4 mg 05/14/20 10:51 05/14/20 11:01 Morphine IVPUSH 05/14/20 10:52 4 mg ONETIME ONE Administration Nitroglycerin 0.4 mg 05/14/20 10:28 05/14/20 10:56 Nitrostat SL 0.4 mg Q5M PRN Administration Chest Pain Ondansetron HCl 4 mg 05/14/20 10:36 05/14/20 10:40 Zofran IVPUSH 05/14/20 10:37 4 mg ONETIME ONE Administration Departure - Departure Time of Disposition: 12:45 Disposition: Refer to Observation Clinical Impression: Chest pain, rule out acute myocardial infarction Hypothyroidism Qualifiers: Hypothyroidism type: unspecified Qualified Code(s): E03.9 - Hypothyroidism, unspecified Hypertension Qualifiers: Hypertension type: unspecified Qualified Code(s): I10 - Essential (primary) hypertension Referrals: PCP,None [Primary Care Provider] - Forms: ED Department Discharge Sepsis Event Note (ED) - Evaluation Sepsis Screening Result: No Definite Risk - Focused Exam Vital Signs: Vital Signs Temp Pulse Resp BP BP Pulse Ox 05/14/20 12:15 83 18 196/119 H 97 05/14/20 11:57 77 16 148/96 H 96 05/14/20 11:42 77 18 170/102 H 98 05/14/20 11:27 77 18 183/101 H 96 05/14/20 11:12 79 18 142/87 H 93 L 05/14/20 10:57 85 18 146/86 H 96 05/14/20 10:56 146/86 H 05/14/20 10:48 87 16 148/101 H 148/101 H 95 05/14/20 10:41 195/100 H 05/14/20 10:37 76 18 195/100 H 97 05/14/20 10:28 77 16 202/98 H 98 05/14/20 10:24 97.1 F 87 18 196/113 H 97 - My Orders Last 24 Hours: My Active Orders 05/14/20 10:28 EKG Documentation Completion [RC] STAT UA RFX AWILDA AND CULT IF INDIC [URIN] Stat Sodium Chloride 0.9% [Saline Flush] 10 ml FLUSH ASDIRECTED PRN Sodium Chloride 0.9% [Saline Flush] 2.5 ml FLUSH ASDIRECTED PRN Saline Lock Insert [OM.PC] Stat 05/14/20 12:35 Admission Status [Patient Status] [ADT] Stat - Assessment/Plan Last 24 Hours: My Active Orders 05/14/20 10:28 EKG Documentation Completion [RC] STAT UA RFX AWILDA AND CULT IF INDIC [URIN] Stat Sodium Chloride 0.9% [Saline Flush] 10 ml FLUSH ASDIRECTED PRN Sodium Chloride 0.9% [Saline Flush] 2.5 ml FLUSH ASDIRECTED PRN Saline Lock Insert [OM.PC] Stat 05/14/20 12:35 Admission Status [Patient Status] [ADT] Stat
[2020-05-14] MEDS: Nitroglycerin 0.4 MG Tab.SL SL PRN ×3 (10:41→10:56)
--- NOTE | 2020-05-14 10:44 | PCM.SN.2 ---
- Free Text/Narrative Note: 12-Lead ECG Interpretation Acquired: 10:29 AM Rhythm: Sinus rhythm Rate: 83 bpm [place]: Normal Intervals: Normal Ectopy: None RV Strain: No obvious RV strain pattern. ST Segments/T-Waves: T wave inversions in V2 Acute Ischemic Changes: None apparent Interpretation: No STEMI
[2020-05-14] MEDS ORDERED: Morphine 4 MG/ML Syringe IVPUSH ONE (10:51)
[2020-05-14 11:09] LABS: BLOOD UREA NITROGEN,BUN 9 mg/dL (7.0-18.0); CARBON DIOXIDE,CO2 25.9 mmol/L (21.0-32.0); CHLORIDE,CL 101 mmol/L (98-107); GLUCOSE RANDOM 96 mg/dL (74-106); POTASSIUM,K 3.6 mmol/L (3.5-5.1); SODIUM,NA 136 mmol/L (136-145)
--- NOTE | 2020-05-14 11:10 | CR ---
INDICATION: Chest pain. FINDINGS: A single portable chest x-ray shows a normal cardiac silhouette. The lungs show no focal pulmonary opacities. Sharp pleural margins. No pneumothorax. IMPRESSION: No evidence of acute pulmonary abnormalities. Dictated by Raad Alonos MD @ May 14 2020 11:08AM Signed by Dr. Raad Alonso @ May 14 2020 11:09AM
[2020-05-14] MEDS ORDERED: Ketorolac 30 MG/ML SDV IVPUSH ONE (11:50)
[2020-05-14] MEDS ORDERED: Ondansetron 4 MG/2 ML SDV IVPUSH PRN (14:13)
--- NOTE | 2020-05-14 14:17 | PCM.HP.2 ---
H&P History of Present Illness - General Date of Service: 05/14/20 Admit Problem/Dx: Admission Diagnosis/Problem Admission Diagnosis/Problem Chest pain, rule out acute myocardial infarction Source of Information: Patient History Limitations: Reports: No Limitations - History of Present Illness Initial Comments - Free Text/Narative: 54-year-old female presents complaining of left-sided chest pain. She has a PMH of depression, hypothyroidism and chronic neck pain. Patient reports having left-sided chest pain that started yesterday night and continued this morning after she woke up. The pain is on and off in nature and lasts for approximately 2 hours. It is no worsened by activity and not relieved by rest. It is described as being sharp and pressure-like in nature. She reports that it radiated to her back. She also had associated nausea and shortness of breath. Patient denies having any chest pain currently. She denies having any fevers, chills, sore throat, cough, vomiting, abdominal pain, blood in stool, pain on urination or blood in urine. In the ER, CBC unremarkable, CMP unremarkable, troponin negative, TSH elevated at 4.61 and CXR was unremarkable. UA was positive for esterase and nitrites with 1 + bacteria. Patient given aspirin 324 mg, Toradol, morphine, nitroglycerin and Zofran. She was admitted for further evaluation and treatment. left chest Pain Score (Numeric/FACES): 10 - Related Data Allergies/Adverse Reactions: Allergies Allergy/AdvReac Type Severity Reaction Status Date / Time coconut Allergy Swollen Verified 05/14/20 10:23 Tongue Home Medications: Home Meds Levothyroxine Sodium [Euthyrox] 25 mcg PO DAILY 08/12/18 [History] Past Medical History HEENT History: Reports: Other (See Below) Other HEENT History: wears glasses/contacts Cardiovascular History: Reports: None Respiratory History: Reports: None Gastrointestinal History: Reports: GERD, Other (See Below) Other Gastrointestinal History: intermittent epigastric pain Genitourinary History: Reports: None 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: Musculoskeletal History: Reports: Back Pain, Chronic, Neck Pain, Chronic Neurological History: Reports: None Psychiatric History: Reports: Anxiety, Depression Endocrine/Metabolic History: Reports: Hypothyroidism Hematologic History: Reports: None Immunologic History: Reports: None Oncologic (Cancer) History: Reports: None Dermatologic History: Reports: None - Infectious Disease History Infectious Disease History: Reports: Chicken Pox - Past Surgical History Head Surgeries/Procedures: Reports: None HEENT Surgical History: Reports: None Cardiovascular Surgical History: Reports: None Respiratory Surgical History: Reports: None GI Surgical History: Reports: Appendectomy, Cholecystectomy Female Surgical History: Reports: Endometrial Ablation, Tubal Ligation Endocrine Surgical History: Reports: None Neurological Surgical History: Reports: Spinal Fusion Other Neurological Surgeries/Procedures: hx back surgery Musculoskeletal Surgical History: Reports: None Oncologic Surgical History: Reports: None Dermatological Surgical History: Reports: None Social & Family History - Family History Family Medical History: No Pertinent Family History - Tobacco Use Tobacco Use Status *Q: Never Tobacco User - Caffeine Use Caffeine Use: Reports: Coffee, Energy Drinks, Soda - Recreational Drug Use Recreational Drug Use: Yes Drug Use in Last 12 Months: Yes Recreational Drug Type: Reports: Marijuana/Hashish Recreational Drug Use Frequency: Socially H&P Review of Systems - Review of Systems: Review Of Systems: Comprehensive ROS is negative, except as noted in HPI. Exam - Exam Exam: See Below - Vital Signs Vital Signs: Last Vital Signs Temp 36.2 C 05/14/20 10:24 Pulse 83 05/14/20 12:15 Resp 18 05/14/20 12:15 BP 196/119 H 05/14/20 12:15 Pulse Ox 97 05/14/20 12:15 Weight: 75.6 kg - Exam General: Alert, Oriented, Cooperative, Other (NAD) HEENT: Conjunctiva Clear, EOMI, Hearing Intact, Pupils Equal, Pupils Reactive Neck: Supple, Trachea Midline Lungs: Clear to Auscultation, Normal Respiratory Effort Cardiovascular: Regular Rate, Regular Rhythm GI/Abdominal Exam: Normal Bowel Sounds, Soft, Non-Tender, No Distention Extremities: Normal Inspection, No Pedal Edema Peripheral Pulses: 2+: Radial (L), Radial (R) Skin: Warm, Dry, Intact Neurological: Cranial Nerves Intact, Strength Equal Bilateral, Normal Speech, Normal Tone Neuro Extensive - Mental Status: Alert, Oriented x3, Normal Mood/Affect Psychiatric: Alert, Normal Affect, Normal Mood - Patient Data Lab Results Last 24 hrs: Laboratory Results - last 24 hr 05/14/20 05/14/20 05/14/20 Range/Units 10:30 10:30 11: WBC 7.02 (4.0-11.0) K/uL RBC 4.78 (4.30-5.90) M/uL Hgb 14.5 (12.0-16.0) g/dL Hct 44.2 (36.0-46.0) % MCV 92.5 (80.0-98.0) fL MCH 30.3 (27.0-32.0) pg MCHC 32.8 (31.0-37.0) g/dL RDW Std Deviation 42.6 (28.0-62.0) fl RDW Coeff of Ivania 13 (11.0-15.0) % Plt Count 293 (150-400) K/uL MPV 10.00 (7.40-12.00) fL Neut % (Auto) 64.0 (48.0-80.0) % Lymph % (Auto) 21.7 (16.0-40.0) % [place] % (Auto) 4.7 (0.0-15.0) % Eos % (Auto) 9.3 H (0.0-7.0) % Baso % (Auto) 0.3 (0.0-1.5) % Neut # (Auto) 4.5 (1.4-5.7) K/uL Lymph # (Auto) 1.5 (0.6-2.4) K/uL [place] # (Auto) 0.3 (0.0-0.8) K/uL Eos # (Auto) 0.7 (0.0-0.7) K/uL Baso # (Auto) 0.0 (0.0-0.1) K/uL Nucleated RBC % 0.0 /100WBC Nucleated RBCs # 0 K/uL Sodium 136 (136-145) mmol/L Potassium 3.6 (3.5-5.1) mmol/L Chloride 101 (98-107) mmol/L Carbon Dioxide 25.9 (21.0-32.0) mmol/L BUN 9 (7.0-18.0) mg/dL Creatinine 0.9 (0.6-1.0) mg/dL Est Cr Clr Drug Dosing 50.13 mL/min Estimated GFR (MDRD) > 60.0 ml/min Glucose 96 (74-106) mg/dL Calcium 9.1 (8.5-10.1) mg/dL Total Bilirubin 0.6 (0.2-1.0) mg/dL AST 19 (15-37) IU/L ALT 34 (14-63) IU/L Alkaline Phosphatase 107 (46-116) U/L Troponin I < 0.050 (0.000-0.056) ng/mL Total Protein 7.7 (6.4-8.2) g/dL Albumin 4.2 (3.4-5.0) g/dL Globulin 3.5 (2.6-4.0) g/dL Albumin/Globulin Ratio 1.2 (0.9-1.6) TSH 3rd Generation 4.61 H (0.36-3.74) uIU/mL Urine Color Urine Appearance Urine pH (5.0-8.0) Ur Specific [place] (1.001-1.035) Urine Protein (NEGATIVE) mg/dL Urine Glucose (UA) (NEGATIVE) mg/dL Urine Ketones (NEGATIVE) mg/dL Urine Occult Blood (NEGATIVE) Urine Nitrite (NEGATIVE) Urine Bilirubin (NEGATIVE) Urine Urobilinogen (<2.0) EU/dL Ur Leukocyte Esterase (NEGATIVE) Urine RBC (0-2/HPF) Urine WBC (0-5/HPF) Ur Epithelial Cells (NONE-FEW) Urine Bacteria (NEGATIVE) SARS-CoV-2 RNA (ROXY) NEGATIVE (NEGATIVE) 05/14/20 Range/Units 12:43 WBC (4.0-11.0) K/uL RBC (4.30-5.90) M/uL Hgb (12.0-16.0) g/dL Hct (36.0-46.0) % MCV (80.0-98.0) fL MCH (27.0-32.0) pg MCHC (31.0-37.0) g/dL RDW Std Deviation (28.0-62.0) fl RDW Coeff of Ivania (11.0-15.0) % Plt Count (150-400) K/uL MPV (7.40-12.00) fL Neut % (Auto) (48.0-80.0) % Lymph % (Auto) (16.0-40.0) % [place] % (Auto) (0.0-15.0) % Eos % (Auto) (0.0-7.0) % Baso % (Auto) (0.0-1.5) % Neut # (Auto) (1.4-5.7) K/uL Lymph # (Auto) (0.6-2.4) K/uL [place] # (Auto) (0.0-0.8) K/uL Eos # (Auto) (0.0-0.7) K/uL Baso # (Auto) (0.0-0.1) K/uL Nucleated RBC % /100WBC Nucleated RBCs # K/uL Sodium (136-145) mmol/L Potassium (3.5-5.1) mmol/L Chloride (98-107) mmol/L Carbon Dioxide (21.0-32.0) mmol/L BUN (7.0-18.0) mg/dL Creatinine (0.6-1.0) mg/dL Est Cr Clr Drug Dosing mL/min Estimated GFR (MDRD) ml/min Glucose (74-106) mg/dL Calcium (8.5-10.1) mg/dL Total Bilirubin (0.2-1.0) mg/dL AST (15-37) IU/L ALT (14-63) IU/L Alkaline Phosphatase (46-116) U/L Troponin I (0.000-0.056) ng/mL Total Protein (6.4-8.2) g/dL Albumin (3.4-5.0) g/dL Globulin (2.6-4.0) g/dL Albumin/Globulin Ratio (0.9-1.6) TSH 3rd Generation (0.36-3.74) uIU/mL Urine Color YELLOW Urine Appearance CLEAR Urine pH 6.0 (5.0-8.0) Ur Specific [place] 1.010 (1.001-1.035) Urine Protein NEGATIVE (NEGATIVE) mg/dL Urine Glucose (UA) NEGATIVE (NEGATIVE) mg/dL Urine Ketones NEGATIVE (NEGATIVE) mg/dL Urine Occult Blood TRACE-INTACT H (NEGATIVE) Urine Nitrite POSITIVE H (NEGATIVE) Urine Bilirubin NEGATIVE (NEGATIVE) Urine Urobilinogen 0.2 (<2.0) EU/dL Ur Leukocyte Esterase SMALL H (NEGATIVE) Urine RBC 1-2 (0-2/HPF) Urine WBC 3-5 (0-5/HPF) Ur Epithelial Cells FEW (NONE-FEW) Urine Bacteria 1+ H (NEGATIVE) SARS-CoV-2 RNA (ROXY) (NEGATIVE) Result Diagrams: 05/14/20 10:30 05/14/20 10:30 Sepsis Event Note - Evaluation Sepsis Screening Result: No Definite Risk - Focused Exam Vital Signs: Vital Signs Temp Pulse Resp BP BP Pulse Ox 05/14/20 12:15 83 18 196/119 H 97 05/14/20 11:57 77 16 148/96 H 96 05/14/20 11:42 77 18 170/102 H 98 05/14/20 11:27 77 18 183/101 H 96 05/14/20 11:12 79 18 142/87 H 93 L 05/14/20 10:57 85 18 146/86 H 96 05/14/20 10:56 146/86 H 05/14/20 10:48 87 16 148/101 H 148/101 H 95 05/14/20 10:41 195/100 H 05/14/20 10:37 76 18 195/100 H 97 05/14/20 10:28 77 16 202/98 H 98 05/14/20 10:24 36.2 C 87 18 196/113 H 97 - Problem List (1) Chest pain, rule out acute myocardial infarction SNOMED Code(s): 95372326 ICD Code: R07.9 - CHEST PAIN, UNSPECIFIED Status: Acute Current Visit: Yes (2) Hypertension SNOMED Code(s): 77048033 ICD Code: I10 - ESSENTIAL (PRIMARY) HYPERTENSION Status: Acute Current Visit: Yes Qualifiers: Hypertension type: unspecified Qualified Code(s): I10 - Essential (primary) hypertension (3) Hypothyroidism SNOMED Code(s): 49084108 ICD Code: E03.9 - HYPOTHYROIDISM, UNSPECIFIED Status: Acute Current V isit: Yes Qualifiers: Hypothyroidism type: unspecified Qualified Code(s): E03.9 - Hypothyroidism, unspecified Problem List Initiated/Reviewed/Updated: Yes Orders Last 24hrs: Active Orders 24 hr Category Date Time Status Admission Status [Patient Status] [ADT] Stat ADT 05/14/20 12:35 Active Antiembolic Devices [RC] PER UNIT ROUTINE Care 05/14/20 14:14 Ordered EKG Documentation Completion [RC] STAT Care 05/14/20 10:28 Active Oxygen Therapy [RC] PRN Care 05/14/20 14:13 Ordered Telemetry Monitoring [Cardiac Monitoring] [RC] . Care 05/14/20 14:14 Ordered DIRECTED Up ad Talia [RC] ASDIRECTED Care 05/14/20 14:13 Ordered VTE/DVT Education [RC] PER UNIT ROUTINE Care 05/14/20 14:13 Ordered Vital Signs [RC] Q4H Care 05/14/20 14:13 Ordered Heart Healthy Diet [DIET] Diet 05/14/20 Lunch Ordered CBC WITH AUTO DIFF [HEME] AM Lab 05/15/20 05:11 Ordered COMPREHENSIVE METABOLIC PN,CMP [CHEM] AM Lab 05/15/20 05:11 Ordered CULTURE URINE [RM] Stat Lab 05/14/20 12:43 Received GLYCOSYLATED HEMOGLOBIN,HGBA1C [CHEM] Routine Lab 05/14/20 14:15 Ordered LIPID PANEL [CHEM] Routine Lab 05/14/20 14:15 Ordered MAGNESIUM [CHEM] Routine Lab 05/14/20 14:15 Ordered PHOSPHORUS [CHEM] Routine Lab 05/14/20 14:15 Ordered TROPONIN I [CHEM] Q6H Lab 05/14/20 16:30 Ordered TROPONIN I [CHEM] Q6H Lab 05/14/20 22:30 Ordered Acetaminophen [TylenoL] Med 05/14/20 14:13 Ordered 650 mg PO Q4H PRN Ondansetron [Zofran] Med 05/14/20 14:13 Ordered 4 mg IVPUSH Q4H PRN Sodium Chloride 0.9% [Saline Flush] Med 05/14/20 10:28 Active 10 ml FLUSH ASDIRECTED PRN Sodium Chloride 0.9% [Saline Flush] Med 05/14/20 10:28 Active 2.5 ml FLUSH ASDIRECTED PRN Saline Lock Insert [OM.PC] Stat Oth 05/14/20 10:28 Ordered Sequential Compression Device [OM.PC] Per Unit Routine Oth 05/14/20 14:13 Or dered Resuscitation Status Routine Resus Stat 05/14/20 14:13 Ordered Medication Orders Acetaminophen (Tylenol) 650 mg PO Q4H PRN PRN Reason: Pain (Mild 1-3)/fever Ondansetron HCl (Zofran) 4 mg IVPUSH Q4H PRN PRN Reason: Nausea Sodium Chloride (Saline Flush) 10 ml FLUSH ASDIRECTED PRN PRN Reason: Keep Vein Open Last Admin: 05/14/20 10:38 Dose: 10 ml Documented by: DINO Sodium Chloride (Saline Flush) 2.5 ml FLUSH ASDIRECTED PRN PRN Reason: Keep Vein Open Last Admin: 05/14/20 10:38 Dose: 2.5 ml Documented by: DINO Assessment/Plan Comment:: Assessment and Plan: 1. Chest pain, ACS rule out: - Admit to med/surg. Patient on telemetry. EKG showed T-wave inversions in V2. Initial troponin was negative. Will trend troponin q6h. Will also check lipid panel, HgbA1c, magnesium and phosphorus level. - CXR was unremarkable. 2. Asymptomatic bacteriuria: - Will hold off on starting antibiotic at this time as patient denies any dysuria, hematuria or flank pain. 3. DVT prophylaxis: - Will start SCD's for now. 4. Past medical history of depression, hypothyroidism and chronic neck pain: - Resume home medications.
[2020-05-14 14:38] LABS: HEMOGLOBIN A1C 5.4 %
[2020-05-14] MEDS ORDERED: Alum Hydrox/Mag Hydrox/Simeth 15 ML, Lidocaine 2% 5 ML PO ONE ×2 (15:23)
[2020-05-14] MEDS: Acetaminophen 325 MG Tab PO PRN ×2 (15:56→19:18)
[2020-05-14] MEDS ORDERED: Morphine 2 MG/ML SYRINGE IVPUSH PRN (20:09)
[2020-05-14] MEDS ORDERED: Lisinopril 10 MG Tab PO ONE (20:10)
[2020-05-15] MEDS: Acetaminophen 325 MG Tab PO PRN (06:36)
[2020-05-15 06:49] LABS: CARBON DIOXIDE,CO2 30.7 mmol/L (21.0-32.0); POTASSIUM,K 4.2 mmol/L (3.5-5.1)
[2020-05-15] MEDS ORDERED: Levothyroxine 25 MCG Tab PO SCH (07:30)
[2020-05-15] MEDS ORDERED: buPROPion 150 MG Tab.SR PO SCH (09:00)
--- NOTE | 2020-05-15 19:03 | PCM.DCSUM1 ---
Discharge Summary - Hospital Course Brief History: Patient is a 54-year-old female who presents to the emergency room with complaints of left anterior chest pain since 8 AM. She states she has chronic neck pain that typically radiates to her left side of her neck and down into her left arm. Today she states the pain is a little more intense than she is used to. She woke up without any chest pain but noticed the left sided neck pain, proceeded to get her coffee and started to have left anterior chest pain which she describes as a sharp pressure. Nothing makes the pain better or worse, describing it as constant. She also has some mild nausea without vomiting. Patient denies any fever, chills, headache, change in vision, syncope or near syncope. Denies any back pain, shortness of breath or cough. Denies any abdominal pain, diarrhea, constipation or dysuria. Has not noted any blood in urine or stool. Patient has been eating and drinking appropriately. Review of systems: Diagnosis: Stroke: No - Discharge Data Discharge Date: 05/15/20 Discharge Disposition: Home, Self-Care 01 Condition: Fair - Referral to Home Health Primary Care Physician: PCP None - Patient Summary/Data Hospital Course: Pt is a 54 y/o female was admitted for ACS rule out. Her pain has subsided, troponin's were negative, normal CXR/ EKG, no changes noted on observation with Tele. Pt may have had atypical chest pain is to follow up with Dr. Marquis in cardiology as an outpatient for cardiac stress test. - Discharge Plan *PRESCRIPTION DRUG MONITORING PROGRAM REVIEWED*: Not Applicable *COPY OF PRESCRIPTION DRUG MONITORING REPORT IN PATIENT [place]AV[place]: Not Applicable Home Medications: Home Meds Levothyroxine Sodium [Euthyrox] 25 mcg PO DAILY 08/12/18 [History] buPROPion [Wellbutrin SR] 150 mg PO DAILY tab.sr 05/15/20 [Rx] Oxygen Therapy Mode: Room Air Patient Handouts: Nonspecific Chest Pain, Adult, [id number] Referrals: Zuly Hawthorne MD [Physician] - Edgar Tracey MD [Physician] - - Discharge Summary/Plan Comment DC Time >30 min.: No - General Info Date of Service: 05/15/20 Functional Status: Reports: Pain Controlled, Tolerating Diet, Ambulating - Review of Systems General: Reports: No Symptoms HEENT: Reports: No Symptoms Pulmonary: Reports: No Symptoms Cardiovascular: Reports: No Symptoms Gastrointestinal: Reports: No Symptoms Genitourinary: Reports: No Symptoms Musculoskeletal: Reports: No Symptoms Skin: Reports: No Symptoms Neurological: Reports: No Symptoms Psychiatric: Reports: No Symptoms - Patient Data Vitals - Most Recent: Last Vital Signs Temp 97.9 F 05/15/20 12:00 Pulse 64 05/15/20 12:00 Resp 15 05/15/20 12:00 BP 141/81 H 05/15/20 12:00 Pulse Ox 97 05/15/20 12:00 Weight - Most Recent: 166 lb 10.711 oz I&O - Last 24 hours: Intake & Output 05/15/20 05/15/20 05/15/20 06:59 14:59 22:59 Intake Total 700 500 Output Total 350 980 Balance 350 -480 Lab Results - Last 24 hrs: Laboratory Results - last 24 hr 05/14/20 05/15/20 05/15/20 Range/Units 22:25 05:40 05:40 WBC 7.44 (4.0-11.0) K/uL RBC 4.25 L (4.30-5.90) M/uL Hgb 12.9 (12.0-16.0) g/dL Hct 39.1 (36.0-46.0) % MCV 92.0 (80.0-98.0) fL MCH 30.4 (27.0-32.0) pg MCHC 33.0 (31.0-37.0) g/dL RDW Std Deviation 42.1 (28.0-62.0) fl RDW Coeff of Ivania 12 (11.0-15.0) % Plt Count 265 (150-400) K/uL MPV 10.10 (7.40-12.00) fL Neut % (Auto) 55.8 (48.0-80.0) % Lymph % (Auto) 31.0 (16.0-40.0) % [place] % (Auto) 4.2 (0.0-15.0) % Eos % (Auto) 8.5 H (0.0-7.0) % Baso % (Auto) 0.5 (0.0-1.5) % Neut # (Auto) 4.2 (1.4-5.7) K/uL Lymph # (Auto) 2.3 (0.6-2.4) K/uL [place] # (Auto) 0.3 (0.0-0.8) K/uL Eos # (Auto) 0.6 (0.0-0.7) K/uL Baso # (Auto) 0.0 (0.0-0.1) K/uL Nucleated RBC % 0.0 /100WBC Nucleated RBCs # 0 K/uL Sodium 132 L (136-145) mmol/L Potassium 4.2 (3.5-5.1) mmol/L Chloride 95 L (98-107) mmol/L Carbon Dioxide 30.7 (21.0-32.0) mmol/L BUN 10 (7.0-18.0) mg/dL Creatinine 1.0 (0.6-1.0) mg/dL Est Cr Clr Drug Dosing 45.12 mL/min Estimated GFR (MDRD) 57.4 ml/min Glucose 88 (74-106) mg/dL Calcium 8.4 L (8.5-10.1) mg/dL Total Bilirubin 0.5 (0.2-1.0) mg/dL AST 13 L (15-37) IU/L ALT 25 (14-63) IU/L Alkaline Phosphatase 85 (46-116) U/L Troponin I < 0.050 (0.000-0.056) ng/mL Total Protein 6.4 (6.4-8.2) g/dL Albumin 3.4 (3.4-5.0) g/dL Globulin 3.0 (2.6-4.0) g/dL Albumin/Globulin Ratio 1.1 (0.9-1.6) Med Orders - Current: Current Medications Discontinued Medications Acetaminophen (Tylenol) 650 mg PO Q4H PRN PRN Reason: Pain (Mild 1-3)/fever Last Admin: 05/15/20 06:36 Dose: 650 mg Documented by: Aspirin (Aspirin) 324 mg PO ONETIME ONE Stop: 05/14/20 10:29 Last Admin: 05/14/20 10:37 Dose: 324 mg Documented by: Bupropion HCl (Wellbutrin Sr) 150 mg PO DAILY YAHIR Last Admin: 05/15/20 08:12 Dose: 150 mg Documented by: Al Hydroxide/Mg Hydroxide 15 (ml/ Lidocaine HCl 5 ml) 0 ml PO ONETIME ONE Stop: 05/14/20 15:24 Last Admin: 05/14/20 17:32 Dose: 1 each Documented by: Ketorolac Tromethamine (Toradol) 30 mg IVPUSH ONETIME ONE Stop: 05/14/20 11:51 Last Admin: 05/14/20 13:07 Dose: 30 mg Documented by: Levothyroxine Sodium (Levothyroxine) 25 mcg PO ACBREAKFAST YAHIR Last Admin: 05/15/20 06:36 Dose: 25 mcg Documented by: Lisinopril (Prinivil) 10 mg PO ONETIME ONE Stop: 05/14/20 20:11 Last Admin: 05/14/20 20:32 Dose: 10 mg Documented by: Morphine Sulfate (Morphine) 4 mg IVPUSH ONETIME ONE Stop: 05/14/20 10:52 Last Admin: 05/14/20 11:01 Dose: 4 mg Documented by: Morphine Sulfate (Morphine) 2 mg IVPUSH Q3H PRN PRN Reason: Pain Last Admin: 05/14/20 20:26 Dose: 2 mg Documented by: Nitroglycerin (Nitrostat) 0.4 mg SL Q5M PRN PRN Reason: Chest Pain Last Admin: 05/14/20 10:56 Dose: 0.4 mg Documented by: Ondansetron HCl (Zofran) 4 mg IVPUSH ONETIME ONE Stop: 05/14/20 10:37 Last Admin: 05/14/20 10:40 Dose: 4 mg Documented by: Ondansetron HCl (Zofran) 4 mg IVPUSH Q4H PRN PRN Reason: Nausea Sodium Chloride (Saline Flush) 10 ml FLUSH ASDIRECTED PRN PRN Reason: Keep Vein Open Last Admin: 05/14/20 10:38 Dose: 10 ml Documented by: Sodium Chloride (Saline Flush) 2.5 ml FLUSH ASDIRECTED PRN PRN Reason: Keep Vein Open Last Admin: 05/14/20 10:38 Dose: 2.5 ml Documented by: - Exam General: Reports: Alert, Oriented, Cooperative, No Acute Distress HEENT: Reports: Pupils Equal, Pupils Reactive, EOMI, Mucous Membr. Moist/[place] Neck: Reports: Supple, Trachea Midline, No JVD Lungs: Reports: Clear to Auscultation, Normal Respiratory Effort. Denies: Crackles, Rales, Rhonchi, Rub, Stridor Cardiovascular: Reports: Regular Rate, Regular Rhythm GI/Abdominal Exam: Normal Bowel Sounds, Soft, Non-Tender Extremities: Normal Inspection, Normal Range of Motion, No Pedal Edema, Normal Capillary Refill Skin: Reports: Warm, Dry, Intact Neurological: Reports: No New Focal Deficit Psy/Mental Status: Reports: Alert, Normal Affect, Normal Mood
== END 2020-05-15 13:23 | disposition home or self-care (01) ==
LOC: MW.ED 10:22 → MW.MS 12:35
PROVIDERS: ADMIT Internal Medicine; ATTEND Internal Medicine
DX: R07.9 Chest pain, unspecified (principal); F32.9 Major depressive disorder, single episode, unspecified; E03.9 Hypothyroidism, unspecified; K21.9 Gastro-esophageal reflux disease without esophagitis; G89.29 Other chronic pain; Z91.018 Allergy to other foods; Z79.890 Hormone replacement therapy; Z90.49 Acquired absence of other specified parts of digestive tract; Z98.890 Other specified postprocedural states; Z20.828 Contact with and (suspected) exposure to other viral communicable diseases
CPT/HCPCS: 36415; 71045; 80053; 80061; 81001; 83036; 83735; 84100; 84443; 84484; 85025; 87086; 87635; 93005; 96374; 96375; 99285; A9270; J1885; J2270; J2405; 93010; 96376; 99217; 99219; 99283; G0378; U0002

== ENCOUNTER 2022-05-15 16:48 | Emergency (ER) | payer SELFPAY ==
[2022-05-15] MEDS ORDERED: Sodium Chloride 0.9% 1,000 ML IV ONE (17:16)
[2022-05-15] MEDS ORDERED: Ondansetron 4 MG/2 ML SDV IVPUSH ONE (17:16)
[2022-05-15] MEDS ORDERED: Ketorolac 30 MG/ML SDV IVPUSH ONE (17:21)
[2022-05-15 18:18] LABS: CARBON DIOXIDE,CO2 25.2 mmol/L (21.0-32.0); POTASSIUM,K 3.5 mmol/L (3.5-5.1)
[2022-05-15 19:03] LABS: CORONAVIRUS COVID-19 NAA POSITIVE (NEGATIVE); INFLUENZA A NAA NEGATIVE (NEGATIVE); INFLUENZA B NAA NEGATIVE (NEGATIVE)
== END 2022-05-15 19:56 | disposition home or self-care (01) ==
LOC: MW.ED 16:48
DX: U07.1 COVID-19 (principal); K52.9 Noninfective gastroenteritis and colitis, unspecified; E03.9 Hypothyroidism, unspecified; Z91.018 Allergy to other foods; Z79.899 Other long term (current) drug therapy
CPT/HCPCS: 0240U; 36415; 71045; 80053; 81001; 83690; 85025; 93005; 96361; 96374; 96375; 99284; J1885; J2405; J7030; 93010; 99283

== ENCOUNTER 2022-09-11 20:35 | Emergency (ER) | payer SELFPAY ==
[2022-09-11] MEDS ORDERED: Acetaminophen 500 MG Tab PO ONE (22:40)
[2022-09-11 23:18] LABS: CARBON DIOXIDE,CO2 26.9 mmol/L (21.0-32.0); POTASSIUM,K 3.7 mmol/L (3.5-5.1)
[2022-09-12] MEDS ORDERED: Iopamidol 755 MG/ML 500 ML Multipack Bottle IVPUSH STA (01:32)
[2022-09-12] MEDS ORDERED: diphenhydrAMINE 50 MG/ML SDV IVPUSH ONE (01:39)
== END 2022-09-12 03:38 | disposition home or self-care (01) ==
LOC: MW.ED 20:35
DX: M54.50 Low back pain, unspecified (principal); I10 Essential (primary) hypertension; E03.9 Hypothyroidism, unspecified; Z91.018 Allergy to other foods; Z79.899 Other long term (current) drug therapy
CPT/HCPCS: 36415; 71045; 74177; 80053; 81001; 83690; 85025; 85379; 87086; 93005; 96374; 99284; A9270; J1200; Q9967; 93010

== ENCOUNTER 2022-11-22 05:44 | Emergency (ER) | payer BC ==
[2022-11-22] MEDS ORDERED: Sodium Chloride 0.9% 2.5 ML Syringe FLUSH PRN (06:51)
[2022-11-22] MEDS ORDERED: Sodium Chloride 0.9% 10 ML Syringe FLUSH PRN (06:51)
[2022-11-22] MEDS ORDERED: Ondansetron 4 MG/2 ML SDV IVPUSH ONE (06:51)
[2022-11-22] MEDS ORDERED: Sodium Chloride 0.9% 1,000 ML IV ONE (06:51)
[2022-11-22 07:07] LABS: BASOPHILS ABSOLUTE AUTO 0.1 K/uL (0.0-0.1); BASOPHILS PERCENT AUTO 0.6 % (0.0-1.5); EOSINOPHILS ABSOLUTE AUTO 0.5 K/uL (0.0-0.7); EOSINOPHILS PERCENT AUTO 3.3 % (0.0-7.0); HEMATOCRIT 41.8 % (36.0-46.0); HEMOGLOBIN 14.1 g/dL (12.0-16.0); LYMPHOCYTES ABSOLUTE AUTO 1.3 K/uL (0.6-2.4); LYMPHOCYTES PERCENT AUTO 8.5 % (16.0-40.0); MEAN CORPUSCULAR HEMOGLOBIN 30.6 pg (27.0-32.0); MEAN CORPUSCULAR HGB CONC 33.7 g/dL (31.0-37.0); MEAN CORPUSCULAR VOLUME 90.7 fL (80.0-98.0); MONOCYTES ABSOLUTE AUTO 0.8 K/uL (0.0-0.8); MONOCYTES PERCENT AUTO 4.8 % (0.0-15.0); NEUTROPHILS ABSOLUTE AUTO 12.9 K/uL (1.4-5.7); NEUTROPHILS PERCENT AUTO 82.8 % (48.0-80.0); PLATELET COUNT,PLT 313 K/uL (150-400); RED BLOOD CELL COUNT 4.61 M/uL (4.30-5.90); WHITE BLOOD CELL COUNT,WBC 15.56 K/uL (4.0-11.0)
[2022-11-22 07:54] LABS: INR 0.98 (0.86-1.11)
[2022-11-22 08:06] LABS: A/G RATIO 1.1 (0.9-1.6); BILIRUBIN TOTAL 0.4 mg/dL (0.2-1.0); CALCIUM 9.3 mg/dL (8.5-10.1); CARBON DIOXIDE,CO2 26.5 mmol/L (21.0-32.0); CREATININE 0.9 mg/dL (0.6-1.0); EST CRCL DRUG DOSING (CG) 48.34 mL/min; POTASSIUM,K 3.9 mmol/L (3.5-5.1); PROTEIN TOTAL,TP 7.6 g/dL (6.4-8.2)
[2022-11-22] MEDS ORDERED: Doxycycline 100 MG Cap PO ONE (08:18)
== END 2022-11-22 08:50 | disposition home or self-care (01) ==
LOC: MW.ED 05:44
DX: S10.86XA Insect bite of other specified part of neck, initial encounter (principal); K52.9 Noninfective gastroenteritis and colitis, unspecified; I10 Essential (primary) hypertension; E03.9 Hypothyroidism, unspecified; Z91.018 Allergy to other foods; Z79.899 Other long term (current) drug therapy; W57.XXXA Bitten or stung by nonvenomous insect and other nonvenomous arthropods, initial encounter
CPT/HCPCS: 36415; 80053; 85025; 85610; 96361; 96374; 99284; A9270; J2405; J3490; J7030; 99283

== ENCOUNTER 2023-02-18 14:53 | Emergency (ER) | payer BC, OTHER ==
[2023-02-18] MEDS ORDERED: Acetaminophen 500 MG Tab PO STA (16:05)
[2023-02-18 16:17] LABS: BASOPHILS PERCENT AUTO 0.4 % (0.0-1.5); EOSINOPHILS ABSOLUTE AUTO 0.4 K/uL (0.0-0.7); EOSINOPHILS PERCENT AUTO 6.1 % (0.0-7.0); HEMOGLOBIN 13.8 g/dL (12.0-16.0); LYMPHOCYTES ABSOLUTE AUTO 1.5 K/uL (0.6-2.4); LYMPHOCYTES PERCENT AUTO 20.8 % (16.0-40.0); MEAN CORPUSCULAR HEMOGLOBIN 29.9 pg (27.0-32.0); MEAN CORPUSCULAR HGB CONC 32.9 g/dL (31.0-37.0); MEAN CORPUSCULAR VOLUME 91.1 fL (80.0-98.0); MONOCYTES ABSOLUTE AUTO 0.2 K/uL (0.0-0.8); MONOCYTES PERCENT AUTO 3.4 % (0.0-15.0); NEUTROPHILS ABSOLUTE AUTO 4.9 K/uL (1.4-5.7); NEUTROPHILS PERCENT AUTO 69.3 % (48.0-80.0); NRBC ABSOLUTE 0 K/uL; PLATELET COUNT,PLT 326 K/uL (150-400); RED BLOOD CELL COUNT 4.61 M/uL (4.30-5.90); WHITE BLOOD CELL COUNT,WBC 7.07 K/uL (4.0-11.0)
[2023-02-18 16:30] LABS: BILIRUBIN,URINE NEGATIVE (NEGATIVE); COLOR,URINE YELLOW; GLUCOSE,URINE NEGATIVE (NEGATIVE); KETONES,URINE 15 mg/dL (NEGATIVE); LEUKOCYTE ESTERASE,URINE TRACE (NEGATIVE); NITRITE,URINE NEGATIVE (NEGATIVE); OCCULT BLOOD,URINE NEGATIVE (NEGATIVE); PROTEIN,URINE NEGATIVE (NEGATIVE); UROBILINOGEN,URINE 0.2 EU/dL (<2.0)
[2023-02-18 16:37] LABS: AMPHETAMINES SCREEN, URINE NEGATIVE (CUTOFF=500); BARBITURATE SCREEN,URINE NEGATIVE (CUTOFF=200); BENZODIAZEPINES SCREEN,URINE NEGATIVE (CUTOFF=150); BUPRENORPHINE SCREEN,URINE NEGATIVE (CUTOFF=10); METHADONE SCREEN, URINE NEGATIVE (CUTOFF=200); METHAMPHETAMINES SCREEN, URINE NEGATIVE (CUTOFF=500); OXYCODONE SCREEN,URINE NEGATIVE (CUT0FF=100); PCP SCREEN,URINE NEGATIVE (CUTOFF=25); PROPOXYPHENE SCREEN,URINE NEGATIVE (CUTOFF=300); THC SCREEN,URINE 20 NG/ML PRESUMPTIVE POSITIVE (CUTOFF=50)
[2023-02-18 16:52] LABS: APPEARANCE,URINE HAZY
[2023-02-18 16:54] LABS: A/G RATIO 1.1 (0.9-1.6); ALBUMIN 4.1 g/dL (3.4-5.0); BILIRUBIN TOTAL 0.6 mg/dL (0.2-1.0); CALCIUM 9.1 mg/dL (8.5-10.1); CARBON DIOXIDE,CO2 27.9 mmol/L (21.0-32.0); CREATININE 0.6 mg/dL (0.6-1.0); EST CRCL DRUG DOSING (CG) 72.52 mL/min; POTASSIUM,K 3.9 mmol/L (3.5-5.1)
[2023-02-18 16:57] LABS: BACTERIA,URINE FEW (NEGATIVE); EPITHELIAL CELLS,URINE FEW (NONE-FEW); WBC,URINE 0-2 (0-5/HPF)
[2023-02-18 16:57] LABS: ACETAMINOPHEN <2.0 ug/mL; ETHANOL BLOOD MEDICAL <3 mg/dL; MAGNESIUM 2.1 mg/dL (1.8-2.4); SALICYLATE 2.2 mg/dL (0.0-20.0); T4 FREE 0.78 ng/dL (0.76-1.46); TSH ULTRASENSITIVE 3.46 uIU/mL (0.36-3.74)
[2023-02-18] MEDS ORDERED: LORazepam 1 MG Tab PO STA (20:56)
[2023-02-18] MEDS ORDERED: Ketorolac 10 MG Tab PO STA (22:04)
[2023-02-18] MEDS ORDERED: Lidocaine 4% 1 each Patch TOP STA (22:05)
[2023-02-18] MEDS ORDERED: OLANZapine 5 MG Tab.DIS PO STA ×2 (22:39→22:40)
== END 2023-02-18 23:25 ==
LOC: MW.ED 14:53
DX: R45.851 Suicidal ideations (principal); I10 Essential (primary) hypertension; E03.9 Hypothyroidism, unspecified; Z87.891 Personal history of nicotine dependence; Z91.048 Other nonmedicinal substance allergy status; Z91.018 Allergy to other foods; Z79.899 Other long term (current) drug therapy; Z20.822 Contact with and (suspected) exposure to COVID-19
CPT/HCPCS: 36415; 80053; 80143; 80179; 80305; 80307; 81001; 83735; 84439; 84443; 84481; 84484; 85025; 87086; 87635; 93005; 99285; A9270; 93010; U0002

== ENCOUNTER 2023-02-28 10:14 | Emergency (ER) | payer SELFPAY ==
[2023-02-28] MEDS ORDERED: Lidocaine 4% 1 each Patch TOP PRN (10:29)
[2023-02-28] MEDS ORDERED: Acetaminophen/HYDROcodone 325-5 MG Tab PO ONE (10:30)
== END 2023-02-28 12:33 | disposition home or self-care (01) ==
LOC: MW.ED 10:14
DX: M54.6 Pain in thoracic spine (principal); Z91.018 Allergy to other foods; Z91.09 Other allergy status, other than to drugs and biological substances; I10 Essential (primary) hypertension; E03.9 Hypothyroidism, unspecified; Z79.899 Other long term (current) drug therapy
CPT/HCPCS: 71046; 99283; A9270

== ENCOUNTER 2023-04-15 10:31 | Emergency (ER) | payer BC ==
[2023-04-15] MEDS ORDERED: Metoclopramide 10 MG/2 ML SDV IVPUSH ONE (10:46)
[2023-04-15] MEDS ORDERED: diphenhydrAMINE 50 MG/ML SDV IVPUSH ONE (10:46)
[2023-04-15] MEDS ORDERED: Ketorolac 30 MG/ML SDV IVPUSH ONE (10:46)
[2023-04-15 11:48] LABS: BASOPHILS ABSOLUTE AUTO 0.02 K/uL (0.00-0.20); BASOPHILS PERCENT AUTO 0.2 % (0.0-1.0); EOSINOPHILS ABSOLUTE AUTO 0.05 K/uL (0.00-0.45); EOSINOPHILS PERCENT AUTO 0.5 % (0.0-6.0); HEMATOCRIT 43.9 % (37.0-47.0); HEMOGLOBIN 15.1 g/dL (12.0-16.0); IMMATURE GRAN ABSOLUTE AUTO 0.03 K/uL (0.00-0.05); IMMATURE GRAN PERCENT AUTO 0.3 % (0.0-0.4); LYMPHOCYTES ABSOLUTE AUTO 1.59 K/uL (1.00-4.80); LYMPHOCYTES PERCENT AUTO 15.1 % (24.0-44.0); MEAN CORPUSCULAR HEMOGLOBIN 30.3 pg (28.0-32.0); MEAN CORPUSCULAR HGB CONC 34.4 g/dL (32.0-36.0); MEAN PLATELET VOLUME 10.7 fL (9.4-12.3); MONOCYTES ABSOLUTE AUTO 0.46 K/uL (0.00-0.80); MONOCYTES PERCENT AUTO 4.4 % (0.0-8.0); NEUTROPHILS ABSOLUTE AUTO 8.37 K/uL (1.80-7.70); NEUTROPHILS PERCENT AUTO 79.5 % (41.0-71.0); PLATELET COUNT,PLT 392 K/uL (150-400); RED BLOOD CELL COUNT 4.99 M/uL (4.10-5.30); WHITE BLOOD CELL COUNT,WBC 10.52 K/uL (3.9-11.3)
[2023-04-15] MEDS ORDERED: droPERidol 5 MG/2 ML SDV IVPUSH ONE (12:16)
[2023-04-15] MEDS ORDERED: LORazepam 2 MG/ML SDV IVPUSH ONE (12:16)
[2023-04-15 12:17] LABS: A/G RATIO 1.2 (0.9-1.6); ALBUMIN 4.9 g/dL (3.4-5.0); CARBON DIOXIDE,CO2 26.3 mmol/L (21.0-32.0); CREATININE 1.7 mg/dL (0.6-1.0); EST CRCL DRUG DOSING (CG) 25.59 mL/min; MAGNESIUM 2.5 mg/dL (1.8-2.4); POTASSIUM,K 2.9 mmol/L (3.5-5.1)
[2023-04-15 12:33] LABS: CORONAVIRUS COVID-19 NAA NEGATIVE (NEGATIVE); INFLUENZA A NAA NEGATIVE (NEGATIVE); INFLUENZA B NAA NEGATIVE (NEGATIVE)
[2023-04-15] MEDS ORDERED: Sodium Chloride 0.9% 1,000 ML IV ONE (12:36)
[2023-04-15] MEDS ORDERED: Potassium Chloride 20 MEQ Tab.ER PO ONE (12:36)
== END 2023-04-15 14:05 | disposition home or self-care (01) ==
LOC: MW.ED 10:31
DX: K52.9 Noninfective gastroenteritis and colitis, unspecified (principal); E03.9 Hypothyroidism, unspecified; I10 Essential (primary) hypertension; Z20.822 Contact with and (suspected) exposure to COVID-19; Z91.018 Allergy to other foods; Z91.048 Other nonmedicinal substance allergy status
CPT/HCPCS: 0240U; 36415; 70450; 80053; 83735; 85025; 93005; 96361; 96374; 96375; 99284; A9270; J1200; J1790; J1885; J2060; J2765; J7030; 93010

== ENCOUNTER 2024-02-18 11:56 | Emergency (ER) | payer BC ==
[2024-02-18] MEDS ORDERED: Sodium Chloride 0.9% 10 ML Syringe FLUSH PRN (12:11)
[2024-02-18] MEDS: Sodium Chloride 0.9% 2.5 ML Syringe FLUSH PRN (12:28)
[2024-02-18] MEDS: Potassium Chloride 100 ML IV SCH (12:28)
[2024-02-18] MEDS: Sodium Chloride 0.9% 1,000 ML IV ONE (12:28)
[2024-02-18] MEDS: methylPREDNISolone Sodium Succinate 125 MG/2 ML SDV IVPUSH ONE (13:27)
[2024-02-18] MEDS: diphenhydrAMINE 50 MG/ML SDV IVPUSH ONE (13:27)
[2024-02-18] MEDS: Iopamidol 755 MG/ML 500 ML Multipack Bottle IVPUSH STA (13:47)
[2024-02-18] MEDS: Potassium Chloride 10% 20 MEQ/15 ML Soln 15 ML UD Cup PO STA (14:27)
[2024-02-18] MEDS: Diazepam 2 MG Tab PO ONE (15:35)
[2024-02-18 15:39] LABS: CARBON DIOXIDE,CO2 29.8 mmol/L (21.0-32.0); EST CRCL DRUG DOSING (CG) 42.97 mL/min; MAGNESIUM 2.2 mg/dL (1.8-2.4); POTASSIUM,K 2.9 mmol/L (3.5-5.1)
== END 2024-02-18 18:15 | disposition home or self-care (01) ==
LOC: MW.ED 11:56
DX: E87.6 Hypokalemia (principal); I10 Essential (primary) hypertension; E78.00 Pure hypercholesterolemia, unspecified; E03.9 Hypothyroidism, unspecified; Z91.018 Allergy to other foods; Z91.048 Other nonmedicinal substance allergy status; Z79.890 Hormone replacement therapy; Z79.899 Other long term (current) drug therapy; Z90.49 Acquired absence of other specified parts of digestive tract; Z75.8 Other problems related to medical facilities and other health care
CPT/HCPCS: 36415; 74177; 80048; 83735; 93005; 96365; 96366; 96375; 99285; A9270; J1200; J2919; J3480; J7030; Q9967; 99284; J3490

== ENCOUNTER 2024-08-27 09:31 | Emergency (ER) | payer BC ==
[2024-08-27 10:18] LABS: BASOPHILS ABSOLUTE AUTO 0.04 K/uL (0.00-0.20); BASOPHILS PERCENT AUTO 0.4 % (0.0-1.0); EOSINOPHILS ABSOLUTE AUTO 0.11 K/uL (0.00-0.45); EOSINOPHILS PERCENT AUTO 1.2 % (0.0-6.0); HEMOGLOBIN 14.3 g/dL (12.0-16.0); IMMATURE GRAN ABSOLUTE AUTO 0.03 K/uL (0.00-0.05); IMMATURE GRAN PERCENT AUTO 0.3 % (0.0-0.4); LYMPHOCYTES ABSOLUTE AUTO 1.63 K/uL (1.00-4.80); LYMPHOCYTES PERCENT AUTO 18.2 % (24.0-44.0); MEAN CORPUSCULAR HGB CONC 34.9 g/dL (32.0-36.0); MEAN PLATELET VOLUME 9.1 fL (9.4-12.3); MONOCYTES ABSOLUTE AUTO 0.35 K/uL (0.00-0.80); MONOCYTES PERCENT AUTO 3.9 % (0.0-8.0); PLATELET COUNT,PLT 319 K/uL (150-400); RED BLOOD CELL COUNT 4.77 M/uL (4.10-5.30); WHITE BLOOD CELL COUNT,WBC 8.96 K/uL (3.9-11.3)
[2024-08-27 10:46] LABS: A/G RATIO 1.3 (0.9-1.6); ALBUMIN 4.6 g/dL (3.4-5.0); BILIRUBIN TOTAL 1.3 mg/dL (0.2-1.0); CALCIUM 9.7 mg/dL (8.5-10.1); CARBON DIOXIDE,CO2 19.3 mmol/L (21.0-32.0); EST CRCL DRUG DOSING (CG) 42.97 mL/min; POTASSIUM,K 3.2 mmol/L (3.5-5.1); PROTEIN TOTAL,TP 8.1 g/dL (6.4-8.2)
[2024-08-27] MEDS: Sodium Chloride 0.9% 1,000 ML IV SCH (10:57)
[2024-08-27] MEDS: Sodium Chloride 0.9% 10 ML Syringe FLUSH PRN (10:57)
[2024-08-27 11:05] LABS: APPEARANCE,URINE CLOUDY; COLOR,URINE YELLOW; GLUCOSE,URINE NEGATIVE (NEGATIVE); KETONES,URINE >=80 mg/dL (NEGATIVE); LEUKOCYTE ESTERASE,URINE MODERATE (NEGATIVE); NITRITE,URINE NEGATIVE (NEGATIVE); OCCULT BLOOD,URINE SMALL (NEGATIVE); PH,URINE 5.5 (5.0-8.0); PROTEIN,URINE 100 mg/dL (NEGATIVE)
[2024-08-27 11:12] LABS: BILIRUBIN,URINE MODERATE (NEGATIVE)
[2024-08-27] MEDS: Potassium Chloride 20 MEQ Tab.ER PO ONE (11:18)
[2024-08-27] MEDS: NS + KCl 20mEq/L 1,000 ML IV SCH (11:18)
[2024-08-27 11:19] LABS: BACTERIA,URINE 2+ (NEGATIVE); EPITHELIAL CELLS,URINE MANY (NONE-FEW); RBC,URINE 0-2 (0-2/HPF); WBC,URINE 45-50 (0-5/HPF)
[2024-08-27] MEDS: Ketorolac 30 MG/ML SDV IVPUSH ONE (13:08)
[2024-08-27] MEDS: Aluminum Hydroxide/Magnesium Hydroxide/Simethicone Susp 30 ML Cup PO ONE (14:31)
== END 2024-08-27 15:26 | disposition home or self-care (01) ==
LOC: MW.ED 09:31
DX: E87.6 Hypokalemia (principal); N39.0 Urinary tract infection, site not specified; I10 Essential (primary) hypertension; E03.9 Hypothyroidism, unspecified; J44.9 Chronic obstructive pulmonary disease, unspecified; E78.00 Pure hypercholesterolemia, unspecified; K21.9 Gastro-esophageal reflux disease without esophagitis; Z79.899 Other long term (current) drug therapy; Z91.011 Allergy to milk products; Z91.041 Radiographic dye allergy status; Z91.09 Other allergy status, other than to drugs and biological substances
CPT/HCPCS: 36415; 71045; 80053; 81001; 83735; 84484; 85025; 87086; 87428; 93005; 96365; 96366; 96375; 99285; A9270; J1885; J3480; J7030; 93010; 99283